=== PATIENT | male | born 1935 | race Caucasian/White ===

== ENCOUNTER → 2016-10-15 | Outpatient (CLI) | payer MEDICARE, MEDICAID ==
[~2016-10-15] MED LIST: AMIO200T PO; AMLO1CAP72 PO; ASPI81TA3 PO; ATOR40TA21 PO; CELE200C PO; DUTA0.5C PO; ESOM40CA PO; FENO135C3 PO; GABA300C16 PO; HYDR12.53 PO; METO-429 PO; TAMS-14 PO; ZOLP10TA PO
--- NOTE | 2016-10-15 11:01 | RADRPT ---
PROCEDURE: XR pelvis/left hip. CLINICAL INDICATION: Hip pain TECHNIQUE: AP pelvis/AP and lateral left hip view performed COMPARISON: No prior studies are available for comparison. FINDINGS: There is mild bilateral hip osteoarthrosis. This is associated with joint space narrowing. There is normal mineralization. No fractures or osseous lesions are identified. The soft tissues are unrem arkable. Dense soft tissue calcifications overlying the iliac wings. IMPRESSION: Mild bilateral hip osteoarthrosis. RPTAT: HGDB .Theo Valle MD, Date Time Electronically viewed and signed by .Theo Valle MD, on 10/15/2016 11:01 .B/
--- NOTE | 2016-10-15 11:04 | RADRPT ---
PROCEDURE: XR left knee. CLINICAL INDICATION: Knee pain. TECHNIQUE: AP weightbearing, lateral weightbearing and sunrise views are available for review. 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 There is no evidence of loosening of the prosthesis. There is no evidence of hardware failure. The patellofemoral compartment and the lateral tibial femoral compartment are unremarkable. There is diffuse osteopenia. No acute fracture or dislocation is seen.No osseous lesions are identified. The soft tissues are unremarkable . 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 RPTAT: HG[facility] .Theo Valle MD, MD Date Time Electronically viewed and signed by .Theo Valle MD, MD on 10/15/2016 11:04 .B/
== END | disposition home or self-care (01) ==
LOC: HKI 09:14
PROVIDERS: ATTEND Orthopaedic Surgery
DX: M25.552 Pain in left hip (principal); Z96.652 Presence of left artificial knee joint
CPT/HCPCS: 73502; 73562; G0463

== ENCOUNTER 2016-10-21 01:45 | Emergency (ER) | payer MEDICARE ==
[~2016-10-21] VITALS: Ht 167.6 cm; Wt 81.8 kg
[2016-10-21 01:50] VITALS: Ht 167.6 cm; Wt 81.8 kg
[2016-10-21] MEDS ORDERED: PHEN15SP NASAL (03:03)
[2016-10-21] MEDS ORDERED: ATOR40TA68 PO (03:09)
[2016-10-21] MEDS ORDERED: AMLO1CAP14 PO (03:09)
[2016-10-21] MEDS ORDERED: METO50TA16 PO (03:09)
[2016-10-21] MEDS ORDERED: AMIO200T2 PO (03:09)
[2016-10-21] MEDS ORDERED: HYD25 PO (03:09)
--- NOTE | 2016-10-21 03:11 | ERD ---
ER Documentation Chief Complaint Date/Time DATE: 10/21/16 TIME: 03:10 Chief Complaint nosebleed for one hour HPI 81-year-old male comes in with nosebleed for 1 hour. Patient has a history of multiple nosebleeds in the past. No fevers no chills. No trauma. No other current complaints ROS All systems reviewed and are negative except as per history of present illness. Medications Home Meds Active Scripts Phenylephrine Hcl* (Da-Synephrine* Nasal) 0.5% - 15 Ml [place], 2 SPRAY NASAL Q4H Y for CONGESTION for 7 Days, SPRAY Prov:ANIA SHAWAna María 10/21/16 Reported Medications Amlodipine-Benazepril (Amlodipine-Benazepril) 5-40 Mg Capsule, 1 TAB PO DAILY, # 30 TAB 10/21/16 Atorvastatin* (Atorvastatin*) 40 Mg Tablet, 40 MG PO QHS, #30 TAB 10/21/16 Hydrochlorothiazide* (Hydrochlorothiazide*) 25 Mg Tab, 25 MG PO DAILY, #30 TAB 10/21/16 Amiodarone Hcl* (Amiodarone Hcl*) 200 Mg Tablet, 200 MG PO DAILY, #30 TAB 10/21/16 Metoprolol Succinate* (Toprol XL*) 50 Mg Tab.er.24h, 50 MG PO DAILY, #30 TAB 10/21/16 Allergies Allergies: Coded Allergies: No Known Allergy (Unverified , 10/21/16) PMhx/Soc History of Surgery: No Anesthesia Reaction: No Hx Neurological Disorder: No Hx Respiratory Disorders: No Hx Cardiac Disorders: Yes (HTN) Hx Psychiatric Problems: No Hx Miscellaneous Medical Probl: No Hx Alcohol Use: No Hx Substance Use: No Hx Tobacco Use: No Smoking Status: Never smoker Physical Exam Vitals Vital Signs Date Time Temp Pulse Resp B/P Pulse Ox O2 Delivery O2 Flow Rate FiO2 10/21/16 01:50 97.4 86 17 165/87 97 Physical Exam Const: [] Head: Atraumatic Eyes: Normal Conjunctiva ENT: Dried blood right nares. No active bleeding noted Neck: Full range of motion..~ No meningismus. Resp: Clear to auscultation bilaterally Cardio: Regular rate and rhythm, no murmurs Abd: Soft, non tender, non distended. Normal bowel sounds Skin: No petechiae or rashes Back: No midline or flank tenderness Ext: No cyanosis, or edema Neur: Awake and alert Psych: Normal Mood and Affect Procedures/MDM Medical decision-makin-year-old male here for an epistaxis is resolved. Discharged with phenylephrine spray. Follow-up with PCP. Return for worsening symptoms. Departure Diagnosis: Primary Impression: Epistaxis Condition: Stable Patient Instructions: Epistaxis (Adult) ANIA SHAW Oct 21, 2016 03:11
== END 2016-10-21 03:27 | disposition home or self-care (01) ==
LOC: E/R 01:45 → MERGE 01:45 → E/R 03:27
DX: R04.0 Epistaxis (principal); I10 Essential (primary) hypertension
CPT/HCPCS: 99283

== ENCOUNTER → 2016-12-01 | Outpatient (CLI) | payer MEDICARE, MEDICAID ==
[~2016-12-01] MED LIST changes: +AMIO200T2 PO; +AMLO1CAP14 PO; +ATOR40TA68 PO; +HYD25 PO; +METO50TA16 PO; +PHEN15SP NASAL
== END | disposition home or self-care (01) ==
LOC: HKI 08:45
PROVIDERS: ATTEND Orthopaedic Surgery
DX: M25.552 Pain in left hip (principal); M16.12 Unilateral primary osteoarthritis, left hip; Z96.652 Presence of left artificial knee joint
CPT/HCPCS: 73502; G0463